=== PATIENT | female | born 2000 | race Caucasian/White ===

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

== ENCOUNTER 2024-06-12 04:30 | Emergency (ER) | payer SELFPAY ==
[~2024-06-12] VITALS: Ht 162.6 cm; Wt 58.8 kg
[~2024-06-12 04:30] MED LIST: BUPR-94 PO; CHOL200026 PO; DIVA-81 PO; DULO30CA52 PO; IBUP-1985 PO; LURA80TA2 PO; MEDR150V IM
[2024-06-12 05:26] VITALS: BP 125/76; PULSE 94; RESP 18; TEMP 98.6; O2SAT 98
== END 2024-06-12 05:20 | disposition home or self-care (01) ==
LOC: ER 04:32
DX: T19.2XXA Foreign body in vulva and vagina, initial encounter (principal); F32.A Depression, unspecified; F12.90 Cannabis use, unspecified, uncomplicated; Z88.8 Allergy status to other drugs, medicaments and biological substances; Z79.899 Other long term (current) drug therapy; Z79.1 Long term (current) use of non-steroidal anti-inflammatories (NSAID); W44.8XXA Other foreign body entering into or through a natural orifice, initial encounter
CPT/HCPCS: 99284